=== PATIENT | male | born 1975 | race African-American/Black ===

== ENCOUNTER 2017-10-24 15:06 | Observation (INO) ==
[2017-10-24] MEDS ORDERED: DILTIAZEM 50 MG/10 ML VIAL IV STA (15:42)
[2017-10-24] MEDS ORDERED: DILTIAZEM INJ 100 MG in SODIUM CHLORIDE 0.9% 100 ML IV SCH (16:00)
[2017-10-24] MEDS ORDERED: DILTIAZEM 50 MG/10 ML VIAL IV ONE (16:06)
[2017-10-24] MEDS ORDERED: SODIUM CHLORIDE 0.9% 100 ML IV ONE (16:07)
[2017-10-24 16:15] LABS: Basophils # 0.1 10*3/uL (0.0-0.2); Basophils % 0.8 % (0.0-0.8); Eosinophils # 0.2 10*3/uL (0.0-0.87); Eosinophils % 1.9 % (0.00-10.9); Hematocrit 41.9 VOL% (42.0-52.0); Immature Granulocytes % 0.3 %; Immature Granulocytes Absolute 0.03 #; Lymphocytes # 2.5 10*3/uL (1.4-4.0); Lymphocytes % 27.8 % (21.2-54.2); Mean Corpuscular HGB Conc 33.4 GM/DL (32-36); Mean Corpuscular Hemoglobin 28 PG (27-34); Mean Corpuscular Volume 82.2 FL (87-102); Mean Platelet Volume 10.5 FL (9.6-12.0); Monocytes # 0.8 10*3/uL (0.11-0.8); Monocytes % 8.5 % (1.7-12.7); Neutrophils # 5.4 10*3/uL (1.4-7.4); Neutrophils % 60.7 % (38.7-73.9); Platelet Count 326 T/CUMM (130-400); Red Cell Distribution Width 14.6 % (9.3-17.3); White Blood Count 8.8 T/CUMM (4-12)
[2017-10-24 16:26] LABS: PT Patient Result 10.8 SECS
[2017-10-24] MEDS ORDERED: DILTIAZEM CD 120 MG CAPSULE PO STA (16:46)
[2017-10-24 16:55] LABS: Alanine Aminotransferase 22 U/L (16-61); Albumin 3.3 G/DL (3.4-5.0); Alkaline Phosphatase 74 U/L (45-117); Aspartate Amino Transferase 13 U/L (0-37); Blood Urea Nitrogen 12 MG/DL (7-18); Glucose 98 MG/DL (74-106); Osmolality,Calculated 278.4 MOS/KG (273-304); Sodium 140 MMOL/L (136-145); Total Protein 8.1 G/DL (6.4-8.3); Troponin I Only < 0.015 NG/ML (0.00-0.045)
[2017-10-24] MEDS ORDERED: DILTIAZEM CD 120 MG CAPSULE PO ONE (17:12)
[2017-10-24 17:14] LABS: Free T4 (Free Thyroxine) 0.88 NG/DL (0.76-1.46)
[2017-10-24] MEDS ORDERED: LORazepam 2 MG/1 ML VIAL IV PRN (17:37)
[2017-10-24] MEDS ORDERED: ENOXAPARIN 40 MG/0.4 ML SYRINGE SUBCUT SCH (21:00)
[2017-10-25 08:57] VITALS: BP 113/72
[2017-10-25] MEDS ORDERED: ASPIRIN 325 MG TABLET PO SCH (09:00)
[2017-10-25] MEDS ORDERED: THIAMINE 200 MG/2 ML VIAL IV SCH (09:00)
[2017-10-25] MEDS ORDERED: MULTIVITAMIN (BEROCCA) TABLET PO SCH (09:00)
[2017-10-25] MEDS ORDERED: DILTIAZEM CD 240 MG CAPSULE PO SCH (09:00)
== END 2017-10-25 11:20 | disposition home or self-care (01) ==
LOC: N.ED 15:06 → N.EDINP 15:06 → N.TELEN 17:56
PROVIDERS: ADMIT Internal Medicine; ATTEND Internal Medicine